=== PATIENT | female | born 2000 | race Caucasian/White ===

== ENCOUNTER 2019-08-17 21:10 | Emergency (ER) | payer OTHER ==
[~2019-08-17] VITALS: Ht 167.6 cm; Wt 60.1 kg
[2019-08-17] MEDS ORDERED: CLARITIN10 M3 PO (21:22)
[2019-08-17] MEDS ORDERED: KEFLEX250 MG/5 M PO (21:54)
[2019-08-17 22:04] VITALS: BP 144/65
== END 2019-08-17 22:06 | disposition home or self-care (01) ==
LOC: M.ERS 21:10
DX: O99.511 Diseases of the respiratory system complicating pregnancy, first trimester (principal); J02.0 Streptococcal pharyngitis; Z88.0 Allergy status to penicillin; Z3A.01 Less than 8 weeks gestation of pregnancy

== ENCOUNTER 2021-06-09 23:06 | Emergency (ER) | payer OTHER, MEDICAID ==
[~2021-06-09] VITALS: Ht 170.2 cm; Wt 56.7 kg
[~2021-06-09 23:06] MED LIST: CLARITIN10 M3 PO; KEFLEX250 MG/5 M PO
[2021-06-10 00:55] VITALS: BP 157/102
== END 2021-06-10 00:55 | disposition home or self-care (01) ==
LOC: M.ERS 23:06
DX: S69.81XA Other specified injuries of right wrist, hand and finger(s), initial encounter (principal); Z88.0 Allergy status to penicillin; W18.39XA Other fall on same level, initial encounter; Y93.89 Activity, other specified; Y92.89 Other specified places as the place of occurrence of the external cause; Y99.8 Other external cause status

== ENCOUNTER 2021-09-16 19:26 | Emergency (ER) | payer OTHER, MEDICAID ==
[~2021-09-16] VITALS: Ht 170.2 cm; Wt 54.4 kg
[2021-09-16] MEDS ORDERED: TRAMADOL 50 MG50 MG PO (20:37)
[2021-09-16] MEDS ORDERED: FLEXERIL PO (20:37)
[2021-09-16 20:58] VITALS: BP 128/58
== END 2021-09-16 20:58 | disposition home or self-care (01) ==
LOC: M.ERS 19:26
DX: S20.213A Contusion of bilateral front wall of thorax, initial encounter (principal); Z88.0 Allergy status to penicillin; W01.0XXA Fall on same level from slipping, tripping and stumbling without subsequent striking against object, initial encounter; Y93.89 Activity, other specified; Y92.89 Other specified places as the place of occurrence of the external cause; Y99.8 Other external cause status